=== PATIENT | female | born 1995 | race Caucasian/White ===

== ENCOUNTER 2016-07-07 19:24 | Emergency (ER) | payer OTHER | END 2016-07-07 19:34 | disposition home or self-care (01) | LOC: ER 19:24 | PROC: 2W3BX1Z Immobilization of Left Upper Arm using Splint (ICD-10-PCS; principal; 2016-07-07) | DX: S52.022A Displaced fracture of olecranon process without intraarticular extension of left ulna, initial encounter for closed fracture (principal); W19.XXXA Unspecified fall, initial encounter | CPT/HCPCS: 73080-LT; 99284; A9270-GY ==